=== PATIENT | female | born 1945 | race Caucasian/White ===

== ENCOUNTER 2023-04-19 11:45 | Outpatient (RCR) | payer MEDICARE, SELFPAY | END 2023-07-11 13:41 | disposition home or self-care (01) | PROVIDERS: PCP Emergency Medicine; Visit Provider Pediatrics | DX: R53.1 Weakness (principal); R29.6 Repeated falls; R26.89 Other abnormalities of gait and mobility; H81.93 Unspecified disorder of vestibular function, bilateral; Z51.89 Encounter for other specified aftercare | CPT/HCPCS: 97110; 97112; 97116; 97163; 97530 ==

== ENCOUNTER 2023-11-14 10:30 | Outpatient (RCR) | payer MEDICARE, SELFPAY | END 2023-11-14 13:45 | disposition home or self-care (01) | PROVIDERS: PCP Emergency Medicine; Visit Provider Pediatrics | DX: Z86.73 Personal history of transient ischemic attack (TIA), and cerebral infarction without residual deficits (principal); Z51.89 Encounter for other specified aftercare | CPT/HCPCS: 97166; 97535 ==

== ENCOUNTER 2024-07-20 09:45 | Outpatient (RCR) | payer MEDICARE, SELFPAY | END 2024-11-04 09:43 | disposition home or self-care (01) | PROVIDERS: PCP Emergency Medicine; Visit Provider Pediatrics | DX: M25.511 Pain in right shoulder (principal); M25.521 Pain in right elbow; Z51.89 Encounter for other specified aftercare | CPT/HCPCS: 97032; 97110; 97140; 97162 ==